=== PATIENT | female | born 1950 | race Caucasian/White ===

== ENCOUNTER 2018-12-20 07:08 | Emergency (ER) | payer MEDICARE ==
[~2018-12-20] VITALS: Ht 160 cm; Wt 127.0 kg
[~2018-12-20 07:08] MED LIST: ACET325 PO; CENTRUM SILVER1 EAC2 PO; CEPH500 PO; CHOL10002 PO; GUAPHELA PO; LISI20 PO; LOSA50 PO; OCUVITE EYE +1 EACH PO; OMEPRAZOLE MAGN20 MG PO; XARELTO15 MG PO; XARELTO20 MG PO
== END 2018-12-20 08:20 | disposition home or self-care (01) ==
LOC: ER 07:08
DX: M17.12 Unilateral primary osteoarthritis, left knee (principal); I10 Essential (primary) hypertension; K21.9 Gastro-esophageal reflux disease without esophagitis; Z88.0 Allergy status to penicillin; Z88.2 Allergy status to sulfonamides; Z79.01 Long term (current) use of anticoagulants; Z79.899 Other long term (current) drug therapy
CPT/HCPCS: 72100; 99283-25

== ENCOUNTER 2019-08-28 07:21 | Day surgery (SDC) | payer MEDICARE ==
[~2019-08-28 07:21] MED LIST changes: +OCCUVITE PO; +OMEP20ER PO; +VITAMIN D3 PO
== END 2019-08-28 22:46 | disposition home or self-care (01) ==
LOC: MOI MAM 07:21
DX: C50.912 Malignant neoplasm of unspecified site of left female breast (principal)
CPT/HCPCS: 19281

== ENCOUNTER 2019-09-13 05:45 | Day surgery (SDC) | payer MEDICARE ==
[~2019-09-13] VITALS: Ht 157.5 cm; Wt 130.1 kg
--- NOTE | 2019-09-13 06:32 | NUR ---
History, Chart, Medications and Allergies reviewed before start of procedure. Lungs clear T/O to Auscultation. Patient confirms NPO status and agrees with scheduled surgery. Pre-Op teaching done. Pt verbalizes understanding. Patient States Post-Procedure ride home has been arranged. Patient reports completing Chlorhexadine shower X2 prior to admission to hospital.
--- NOTE | 2019-09-13 10:15 | NUR ---
PT HAS HAD APPLESAUCE AND DRANK SOME WATER BUT NOW C/O NAUSEA. PT GIVEN ZOFRAN 4MG IV.
--- NOTE | 2019-09-13 10:47 | NUR ---
Discharge instructions reviewed with patient. Patient verbalizes understanding. Copy given to patient to take home. Patient States Post-Procedure ride home has been arranged. Discharged via wheelchair to private car for ride home.
== END 2019-09-13 10:40 | disposition home or self-care (01) ==
LOC: ORSCMMR 05:45 → ORD 07:30 → ORSCMMR 10:40
PROVIDERS: Surgery
PROC: 0HBU0ZX Excision of Left Breast, Open Approach, Diagnostic (ICD-10-PCS; principal; 2019-09-13 07:30)
DX: D05.12 Intraductal carcinoma in situ of left breast (principal); I10 Essential (primary) hypertension; K21.9 Gastro-esophageal reflux disease without esophagitis; E66.01 Morbid (severe) obesity due to excess calories; Z68.43 Body mass index [BMI] 50.0-59.9, adult; Z79.01 Long term (current) use of anticoagulants; Z79.899 Other long term (current) drug therapy
CPT/HCPCS: J0690; J1100; J1885; J2250; J2405; J2704; J3010; J7120

== ENCOUNTER 2020-07-22 05:47 | Inpatient (IN) | payer MEDICARE ==
[~2020-07-22] VITALS: Ht 160 cm; Wt 123.5 kg
[2020-07-22 06:56] LABS: BASOPHILS ABSOLUTE AUTO 0.05 K/mm3 (0.00-0.23); BASOPHILS PERCENT AUTO 0 % (0-2); EOSINOPHILS ABSOLUTE AUTO 0.35 K/mm3 (0.00-0.68); EOSINOPHILS PERCENT AUTO 3 % (0-6); Hematocrit 41.4 % (33.0-51.0); Hemoglobin 13.2 g/dL (11.5-16.0); IMMATURE GRAN ABSOLUTE AUTO 0.07 K/mm3 (0.00-0.10); IMMATURE GRAN PERCENT AUTO 1 % (0-1); LYMPHOCYTES ABSOLUTE AUTO 1.19 K/mm3 (0.84-5.20); LYMPHOCYTES PERCENT AUTO 11 % (21-46); MONOCYTES ABSOLUTE AUTO 0.96 K/mm3 (0.16-1.47); MONOCYTES PERCENT AUTO 9 % (4-13); Mean Corpuscular HGB 28.9 pg (26.0-34.0); Mean Corpuscular HGB Conc 31.9 g/dL (31.5-36.5); Mean Corpuscular Volume 91 fL (80-100); Mean Platelet Volume 11.5 fL (9.1-12.4); NEUTROPHILS ABSOLUTE AUTO 8.52 K/mm3 (1.96-9.15); NEUTROPHILS PERCENT AUTO 77 % (41-73); Platelet Count 201 K/mm3 (150-400); RDW Coefficient Variation 13.5 % (11.7-14.2); RDW Standard Deviation 45.5 fL (35.1-46.3); Red Blood Cell Count 4.56 M/mm3 (3.80-5.20); White Blood Cell Count 11.14 K/mm3 (4.00-11.30)
[2020-07-22 07:15] LABS: Alanine Aminotransfer (ALT/SGP 19 U/L (12-78); Albumin, Blood 2.6 g/dL (3.4-5.0); Albumin/Globulin Ratio 0.6 (0.8-1.8); Alk Phos 86 U/L (50-136); Anion Gap 5 mmol/L (6-16); Aspartate Aminotrans (AST/SGOT 59 U/L (12-37); Bilirubin, Total 1.2 mg/dL (0.1-1.0); Blood Urea Nitrogen 30 mg/dL (8-24); CO2, Blood 29 mmol/L (21-32); Calcium, Blood 8.6 mg/dL (8.5-10.1); Chloride, Blood 102 mmol/L (98-108); Creatinine, Blood 0.91 mg/dL (0.40-1.00); Globulin, Blood 4.2 g/dL (2.2-4.0); Glomerular Filtration Rate >60 (60-); Glucose, Blood 122 mg/dL (70-99); Potassium, Blood 5.3 mmol/L (3.5-5.5); Sodium, Blood 136 mmol/L (136-145); Total Protein, Blood 6.8 g/dL (6.4-8.2); Troponin I 0.071 ng/mL (0.000-0.040)
[2020-07-22 08:55] LABS: Source, Urine Clean Catch
[2020-07-22 08:57] LABS: Bilirubin, Urine Neg (Neg); Blood, Urine 1+ (Neg); Glucose Qualitative, Urine Neg (Neg); Ketones, Urine Neg (Neg); Leukocyte Esterase, Urine 1+ (Neg); Nitrite, Urine Pos (Neg); Protein, Urine Neg (Neg); Urobilinogen, Urine NORM (Normal)
[2020-07-22 09:12] LABS: Appearance, Urine Clear (Clear); Color, Urine Yellow (P-Yellow)
[2020-07-22 09:16] LABS: Bacteria Mod /hpf; Red Blood Cells, Urine 0-2 /hpf (0-2); Squamous Epithelial Cells Few /hpf (Few)
--- NOTE | 2020-07-22 11:07 | NUR ---
RECIEVED REPORT FROM CATARINO WILLSON RN @ [id number]. PATIENT ARRIVED TO ROOM 224 @ 1034 BY WHEEL CHAIR AND TRANSFERED SELF TO BATHROOM THEN HOSPITAL BED USING FWW; STEADY GAIT NOTED. ALERT AND ORIENTED. ABLE TO PROVIDE MEDICAL HISTORY; MED REC COMPLETED. PATIENT IN ROOM AT THIS TIME WITH [employer]. CALL LIGHT IN REACH.
[2020-07-22 12:16] LABS: International Normalized Ratio 1.09; Prothrombin Time Results 11.6 Sec (9.7-11.5)
--- NOTE | 2020-07-22 12:47 | NUR ---
Echocardiogram completed.
[2020-07-22 15:40] LABS: Troponin I 0.088 ng/mL (0.000-0.040)
--- NOTE | 2020-07-22 18:08 | NUR ---
PATIENT HAS BEEN PLEASANT AND COOPERATIVE WITH STAFF. VITALS HAVE BEEN STABLE. PATIENT HAS BEEN SLEEPING ON AND OFF T/O THE DAY WITH SOME DISCOMFORT BUT NOT REQUIRED ANY PAIN MEDICATION. PATIENT HAS BEEN STARTED ON IV HEPARIN DRIP AND IT CONTINUES PENDING THERAPEUTIC LEVELS. IV FLAGYL DUE AT 1600 HOWEVER AWAITING SECOND IV SITE TO ADMINISTER; PATIENT IS VERY DIFFICULT IV STICK. CHIP DRIER HUGO NOTIFIED AND TO PLACE IV OR FIND ARRANGEMENTS TO PLACE IV. PATIENT EATING CLEAR LIQUIDS IN ROOM AT THIS TIME AND TOLERATING WELL. CALL LIGHT IN REACH.
[2020-07-22 21:16] LABS: Influenza A, PCR NEGATIVE (NEGATIVE); Influenza B, PCR NEGATIVE (NEGATIVE); Resp Syncytial Virus, PCR NEGATIVE (NEGATIVE); SARS-Cov-2 (COVID-19) PCR, MMC NEGATIVE (NEGATIVE)
[2020-07-22 23:21] LABS: Troponin I 0.076 ng/mL (0.000-0.040)
--- NOTE | 2020-07-23 02:58 | NUR ---
SHIFT SUMMARY: ACUTE CHOLECYSTITIS PATIENT IS ALERT AND ORIENTED X4 WHILE AWAKE. SHE HAS BEEN ASLEEP MAJORITY OF THE SHIFT BUT IS EASILY AROUSABLE. VS ARE WNL AND IS ON RA. PAIN IS CONTROLLED WITH PO TYLENOL. SHE REPORTS SHE HAS PAIN AROUND HER STOMACH "ALL THE TIME AND IS CONSTANTLY THERE". SHE IS STILL ON AN IV HEPARIN DRIP AND IS BEING TITRATED PER PHARMACY. SHE HAS TWO IV'S IN HER RIGHT ARM. ONE OF THEM HAS ONLY THE HEPARIN WHILE THE OTHER ONE HAS ABX AND FLUIDS. SHE HAS BEEN NPO SINCE MIDNIGHT. SHE IS A 1 PERSON SBA TO BEDSIDE COMMODE. CALLS APPROPRIATELY. CALL LIGHT IS WITHIN REACH. SHE IS CURRENTLY LAYING IN BED. THE PLAN IS TO POSSIBLY HAVE SURGERY LATER TODAY.
[2020-07-23 03:12] LABS: BASOPHILS ABSOLUTE AUTO 0.04 K/mm3 (0.00-0.23); BASOPHILS PERCENT AUTO 1 % (0-2); EOSINOPHILS ABSOLUTE AUTO 0.34 K/mm3 (0.00-0.68); EOSINOPHILS PERCENT AUTO 5 % (0-6); Hematocrit 35.2 % (33.0-51.0); IMMATURE GRAN ABSOLUTE AUTO 0.02 K/mm3 (0.00-0.10); IMMATURE GRAN PERCENT AUTO 0 % (0-1); LYMPHOCYTES ABSOLUTE AUTO 1.58 K/mm3 (0.84-5.20); LYMPHOCYTES PERCENT AUTO 23 % (21-46); MONOCYTES ABSOLUTE AUTO 0.61 K/mm3 (0.16-1.47); MONOCYTES PERCENT AUTO 9 % (4-13); Mean Corpuscular HGB 28.7 pg (26.0-34.0); Mean Corpuscular HGB Conc 31.3 g/dL (31.5-36.5); Mean Corpuscular Volume 92 fL (80-100); Mean Platelet Volume 10.3 fL (9.1-12.4); NEUTROPHILS ABSOLUTE AUTO 4.28 K/mm3 (1.96-9.15); NEUTROPHILS PERCENT AUTO 62 % (41-73); Platelet Count 165 K/mm3 (150-400); RDW Coefficient Variation 13.3 % (11.7-14.2); RDW Standard Deviation 45.1 fL (35.1-46.3); Red Blood Cell Count 3.83 M/mm3 (3.80-5.20); White Blood Cell Count 6.87 K/mm3 (4.00-11.30)
[2020-07-23 03:35] LABS: Alanine Aminotransfer (ALT/SGP 13 U/L (12-78); Albumin, Blood 2.2 g/dL (3.4-5.0); Albumin/Globulin Ratio 0.8 (0.8-1.8); Alk Phos 67 U/L (50-136); Anion Gap 5 mmol/L (6-16); Aspartate Aminotrans (AST/SGOT 10 U/L (12-37); Bilirubin, Total 0.6 mg/dL (0.1-1.0); Blood Urea Nitrogen 15 mg/dL (8-24); Bun/Creatinine Ratio 20.8 (12.0-20.0); CO2, Blood 29 mmol/L (21-32); Calcium, Blood 7.7 mg/dL (8.5-10.1); Chloride, Blood 109 mmol/L (98-108); Creatinine, Blood 0.72 mg/dL (0.40-1.00); Globulin, Blood 2.9 g/dL (2.2-4.0); Glomerular Filtration Rate >60 (60-); Glucose, Blood 100 mg/dL (70-99); Sodium, Blood 143 mmol/L (136-145); Total Protein, Blood 5.1 g/dL (6.4-8.2)
[2020-07-23 03:36] LABS: Potassium, Blood 3.2 mmol/L (3.5-5.5)
--- NOTE | 2020-07-23 13:17 | NUR ---
Patient is lying in bed and alert. Patient immeditaely tells me about her up coming gallbladder surgery and her hopes to get it over with soon. She also talks about her waiting for surgery in July, the strength of her family unit and the deep [place] karina that they all share. She shares about the of her mother less than a year ago and the whole that she has left in all their hearts. I normalize patient's experience, and provide pastoral child welfare counselor, greif support and pre-surgical prayer. Patient responds well and shows signs of reduced stress. I will continue to remain available to patient and family.
--- NOTE | 2020-07-23 17:14 | NUR ---
SUMMARY NO ACUTE CHANGES T/O SHIFT. PT MEDICATED PER ORDERS FOR PAIN W/TYLENOL. DECLINED NARCOTICS. HEPARIN INFUSING PER ORDERS. PT GETS UP W/MINIMAL ASSIST TO BSC. VOIDING LIGHT YELLOW URINE. PLAN FOR SURGERY TOMORROW. CALL LIGHT IN REACH.
[2020-07-24 02:02] LABS: BASOPHILS ABSOLUTE AUTO 0.03 K/mm3 (0.00-0.23); BASOPHILS PERCENT AUTO 1 % (0-2); EOSINOPHILS ABSOLUTE AUTO 0.41 K/mm3 (0.00-0.68); EOSINOPHILS PERCENT AUTO 7 % (0-6); Hematocrit 35.2 % (33.0-51.0); Hemoglobin 11.1 g/dL (11.5-16.0); IMMATURE GRAN ABSOLUTE AUTO 0.02 K/mm3 (0.00-0.10); IMMATURE GRAN PERCENT AUTO 0 % (0-1); LYMPHOCYTES ABSOLUTE AUTO 1.52 K/mm3 (0.84-5.20); LYMPHOCYTES PERCENT AUTO 26 % (21-46); MONOCYTES ABSOLUTE AUTO 0.46 K/mm3 (0.16-1.47); MONOCYTES PERCENT AUTO 8 % (4-13); Mean Corpuscular HGB 28.9 pg (26.0-34.0); Mean Corpuscular HGB Conc 31.5 g/dL (31.5-36.5); Mean Corpuscular Volume 92 fL (80-100); NEUTROPHILS ABSOLUTE AUTO 3.44 K/mm3 (1.96-9.15); NEUTROPHILS PERCENT AUTO 59 % (41-73); Platelet Count 166 K/mm3 (150-400); RDW Coefficient Variation 13.2 % (11.7-14.2); RDW Standard Deviation 43.8 fL (35.1-46.3); Red Blood Cell Count 3.84 M/mm3 (3.80-5.20); White Blood Cell Count 5.88 K/mm3 (4.00-11.30)
[2020-07-24 02:26] LABS: Alanine Aminotransfer (ALT/SGP 11 U/L (12-78); Albumin, Blood 2.4 g/dL (3.4-5.0); Albumin/Globulin Ratio 0.9 (0.8-1.8); Alk Phos 64 U/L (50-136); Anion Gap 5 mmol/L (6-16); Aspartate Aminotrans (AST/SGOT 8 U/L (12-37); Bilirubin, Total 0.4 mg/dL (0.1-1.0); Blood Urea Nitrogen 8 mg/dL (8-24); Bun/Creatinine Ratio 11.3 (12.0-20.0); CO2, Blood 31 mmol/L (21-32); Chloride, Blood 109 mmol/L (98-108); Creatinine, Blood 0.71 mg/dL (0.40-1.00); Globulin, Blood 2.8 g/dL (2.2-4.0); Glomerular Filtration Rate >60 (60-); Glucose, Blood 103 mg/dL (70-99); Magnesium, Blood 1.8 mg/dL (1.6-2.4); Phosphorus, Blood 3.3 mg/dL (2.5-4.9); Potassium, Blood 3.1 mmol/L (3.5-5.5); Sodium, Blood 145 mmol/L (136-145); Total Protein, Blood 5.2 g/dL (6.4-8.2); Troponin I 0.066 ng/mL (0.000-0.040)
--- NOTE | 2020-07-24 04:18 | NUR ---
SHIFT SUMMARY: PT A&O X4. VS WNL. PT HAS BEEN NPO SINCE MIDNIGHT FOR PLANNED SURGERY TODAY. MEDICATED WITH TYLENOL PRIOR TO BED AND PT APPEARS TO BE RESTING COMFORTABLY SINCE. TRANSFERING TO BS WITH ONE SBA. VOIDING WELL. DENIES N/V T/O SHIFT. HEPARIN GTT INFUSING PER EMAR W/O NEED FOR ADJUSTMENT PER PHARMACY. IVF AND ABX INFUSING PER EMAR.
--- NOTE | 2020-07-24 07:33 | NUR ---
ASSUMED CARE: PT RESTING QUIETLY IN BED AT THIS TIME. HEPARIN GTT RUNNING, VERIFIED DOSE WITH NIGHT RN. SINUS ISA AT 58 ON TELE AT THIS TIME. NO ACUTE NEEDS OR CONCERNS
--- NOTE | 2020-07-24 14:24 | NUR ---
PT TAKEN TO DAY SURGERY AT THIS TIME.
--- NOTE | 2020-07-24 14:33 | NUR ---
Patient up to Ambulate independently. Gait steady. Surgical site prepped with 2% Chlorhexidine cloth wipe. History, Chart, Medications and Allergies reviewed before start of procedure.Lungs clear T/O to Auscultation. Patient confirms NPO status and agrees with scheduled surgery. ALL BELONINGS WEXCEPT GLASSES PLACED IN PACU.
--- NOTE | 2020-07-24 15:02 | NUR ---
PATIENT WAS BROUGHT TO DAY SURGERY FOR HER PROCEDURE. Ambulatory in Day Surgery Surgical site prepped with 2% Chlorhexidine cloth wipe. History, Chart, Medications and Allergies reviewed before start of procedure.Lungs clear T/O to Auscultation. Pre-Op teaching done. Pt verbalizes understanding.
--- NOTE | 2020-07-24 17:00 | NUR ---
PT RETURNED FROM DAY SURGERY TO ROOM 224. SHE HAS STERI STRIPS TO ABDOMEN WITH MINIMAL DRAINAGE AND EUSEBIO DRAIN PUTTING OUT SMALL AMOUNT OF BLOODY, SEROSAINGUINOUS DRAINAGE. DENIES NEEDS OR CONCERNS AT THIS TIME.
--- NOTE | 2020-07-24 18:24 | NUR ---
SHIFT SUMMARY: PT RETURNED FROM SURGERY. NO ACUTE NEEDS OR CONCERNS AT THIS TIME. POTASSIUM BEING REPLETED. EUSEBIO DRAIN WITH MINIMAL DRAINAGE.
--- NOTE | 2020-07-25 03:49 | NUR ---
SHIFT SUMMARY: PT POD#1 FOR LAP RICHIE. LAP SITES C/D/I. EUSEBIO DRAINING A MODERATE AMOUNT OF SANGUINOUS DRG. PAIN BEING MANAGED WITH TYLENOL AND 25-50MCG OF FENTANYL PER EMAR. HEP GTT INFUSING PER ORDERS. PT ELLEN CLEAR LIQ DIET. DENIES N/V. PT OUT OF BED TO BSC SEVERAL TIMES. VOIDING WELL. NO CONCERNS AT THIS TIME. PT APPEARS TO BE RESTING MOST OF SHIFT.
[2020-07-25 05:47] LABS: BASOPHILS ABSOLUTE AUTO 0.01 K/mm3 (0.00-0.23); BASOPHILS PERCENT AUTO 0 % (0-2); EOSINOPHILS PERCENT AUTO 0 % (0-6); Hematocrit 37.3 % (33.0-51.0); Hemoglobin 11.8 g/dL (11.5-16.0); IMMATURE GRAN ABSOLUTE AUTO 0.05 K/mm3 (0.00-0.10); IMMATURE GRAN PERCENT AUTO 1 % (0-1); LYMPHOCYTES ABSOLUTE AUTO 0.48 K/mm3 (0.84-5.20); LYMPHOCYTES PERCENT AUTO 6 % (21-46); MONOCYTES ABSOLUTE AUTO 0.22 K/mm3 (0.16-1.47); MONOCYTES PERCENT AUTO 3 % (4-13); Mean Corpuscular HGB 28.8 pg (26.0-34.0); Mean Corpuscular HGB Conc 31.6 g/dL (31.5-36.5); Mean Corpuscular Volume 91 fL (80-100); Mean Platelet Volume 10.4 fL (9.1-12.4); NEUTROPHILS ABSOLUTE AUTO 7.88 K/mm3 (1.96-9.15); NEUTROPHILS PERCENT AUTO 91 % (41-73); Platelet Count 210 K/mm3 (150-400); RDW Coefficient Variation 12.9 % (11.7-14.2); RDW Standard Deviation 42.7 fL (35.1-46.3); White Blood Cell Count 8.64 K/mm3 (4.00-11.30)
[2020-07-25 06:07] LABS: Alanine Aminotransfer (ALT/SGP 19 U/L (12-78); Albumin, Blood 2.3 g/dL (3.4-5.0); Albumin/Globulin Ratio 0.8 (0.8-1.8); Alk Phos 69 U/L (50-136); Anion Gap 5 mmol/L (6-16); Aspartate Aminotrans (AST/SGOT 16 U/L (12-37); Bilirubin, Total 0.5 mg/dL (0.1-1.0); Blood Urea Nitrogen 5 mg/dL (8-24); Bun/Creatinine Ratio 7.9 (12.0-20.0); CO2, Blood 29 mmol/L (21-32); Calcium, Blood 8.2 mg/dL (8.5-10.1); Chloride, Blood 108 mmol/L (98-108); Creatinine, Blood 0.63 mg/dL (0.40-1.00); Glomerular Filtration Rate >60 (60-); Glucose, Blood 154 mg/dL (70-99); Magnesium, Blood 1.8 mg/dL (1.6-2.4); Phosphorus, Blood 2.7 mg/dL (2.5-4.9); Potassium, Blood 3.9 mmol/L (3.5-5.5); Sodium, Blood 142 mmol/L (136-145); Total Protein, Blood 5.3 g/dL (6.4-8.2)
--- NOTE | 2020-07-25 06:25 | NUR ---
HEPARIN RATE INCREASED AT THIS TIME PER PHARMACY RECOMMENDATION
--- NOTE | 2020-07-25 19:10 | NUR ---
SHIFT SUMMARY PT POD #1 FOR A LAP RICHIE. NO ACUTE CHANGES THIS SHIFT. STERI STRIPS C/D/I AND EUSEBIO DRAIN DRAINING RED/SEROUS FLUID. PT TO DISCHARGE HOME WITH THE DRAIN IN PLACE. WILL REMOVE THE DRAIN AT FOLLOW UP APPOINTMENT. HEPARIN DRIP DC'D AND XARELTO STARTED. VSS; WILL DC HOME TOMORROW.
--- NOTE | 2020-07-26 04:41 | NUR ---
SHIFT SUMMARY POD2 LAP RICHIE WITH EUSEBIO DRAIN. NO ACUTE CHANGES OVERNIGHT. PT AOX4. AMBULATING W/ 1 MIN ASSIST. TOLERATING WALKING IN THE BATHROOM WELL. PT REPORTS MINIMAL PAIN. PAIN MANAGED WITH TYLENOL. ABX INFUSING IN HER L UPPER ARM/POWERGLIDE. VSS. EUSEBIO DRAINING W/ SEROUS FLUID. PT SLEPT GOOD T/O SHIFT. VOIDING ADEQUATELY WITH NO DIFFICULTY/ISSUES. PASSING FLATUS. ANTICIPATE TO GO HOME TODAY. CALL LIGHT WITHIN REACH.
--- NOTE | 2020-07-26 12:06 | NUR ---
Patient tells me that she is feeling stronger and is ready to DC to home. Patient expresses her continued concerns for her and son. I provide therapeutic listening, a blessing and a prayer. Patient responds well and voices appreciation for the spiritual care visits.
--- NOTE | 2020-07-26 15:43 | NUR ---
SHIFT SUMMARY PT A/O X4; PLEASANT AND COOPERATIVE WITH CARE. POD #2 FOR A LAP RICHIE. STERI STRIPS C/D/I. EUSEBIO DRAIN REMOVED BY SURGEON; STERI STRIPS IN PLACE. COVERED NEW STERI STRIPS WITH A BANDAID BECAUSE SCANT DRAINAGE PRESENT. IV AND POWERGLIDE DC'D WNL. EDUCATION PROVIDED TO PATIENT AND PATIENT'S SON. DC'D HOME WITH SON.
== END 2020-07-26 15:15 | disposition home or self-care (01) | DRG 418 ==
LOC: ER 05:47 → SURS 05:48
PROVIDERS: Emergency Medicine; Family Medicine; Surgery; ADMIT Internal Medicine
PROC: 0FT44ZZ Resection of Gallbladder, Percutaneous Endoscopic Approach (ICD-10-PCS; principal; 2020-07-24 14:30)
DX: K80.01 Calculus of gallbladder with acute cholecystitis with obstruction (principal); Z68.42 Body mass index [BMI] 45.0-49.9, adult; N39.0 Urinary tract infection, site not specified; I10 Essential (primary) hypertension; Z20.822 Contact with and (suspected) exposure to COVID-19; I25.10 Atherosclerotic heart disease of native coronary artery without angina pectoris; E66.01 Morbid (severe) obesity due to excess calories; Z90.12 Acquired absence of left breast and nipple; Z86.711 Personal history of pulmonary embolism; Z79.01 Long term (current) use of anticoagulants; K21.9 Gastro-esophageal reflux disease without esophagitis
CPT/HCPCS: 0241U; 36415; 76705; 80053; 81001; 82550; 83690; 83735; 84100; 84484; 85025; 85610; 85730; 87086; 88304; 93005; 93010; 93306; 96361; 96365; 96366; 96367; 96375; 96376; 99285-25; A9270; G0378; J0696; J1100; J1644; J2250; J2270; J2405; J2704; J2765; J3010; J3480; J7030; J7040; J7060; J7120

== ENCOUNTER → 2020-09-04 | Outpatient (CLI) | payer MEDICARE ==
[2020-09-04 09:29] LABS: Source, Urine Clean Catch
[2020-09-04 10:36] LABS: Appearance, Urine Hazy (Clear); Bilirubin, Urine Neg (Neg); Blood, Urine 1+ (Neg); Color, Urine Yellow (P-Yellow); Glucose Qualitative, Urine Neg (Neg); Ketones, Urine Neg (Neg); Leukocyte Esterase, Urine Neg (Neg); Nitrite, Urine Neg (Neg); Protein, Urine Neg (Neg); Specific Gravity, Urine 1.015 (1.003-1.022); Urobilinogen, Urine NORM (Normal)
[2020-09-04 11:28] LABS: White Blood Cells, Urine Rare /hpf (0-5)
[2020-09-04 11:29] LABS: Bacteria Few /hpf; Red Blood Cells, Urine 0-2 /hpf (0-2); Squamous Epithelial Cells Mod /hpf (Few)
== END | disposition home or self-care (01) ==
LOC: LAB 09:27 → LAB SHORT 09:27
PROVIDERS: Family Medicine
DX: R79.9 Abnormal finding of blood chemistry, unspecified (principal)
CPT/HCPCS: 81001

== ENCOUNTER 2021-03-19 08:17 | Day surgery (SDC) | payer MEDICARE ==
[~2021-03-19] VITALS: Ht 160 cm; Wt 124.1 kg
[~2021-03-19 08:17] MED LIST changes: +FURO40 PO; +PEPCID40 MG PO
--- NOTE | 2021-03-19 08:56 | NUR ---
Patient states colon prep results clear. History, Chart, Medications and Allergies reviewed before start of procedure. Lungs clear T/O to Auscultation. Patient confirms NPO status and agrees with scheduled surgery. Pre-Op teaching done. Pt verbalizes understanding. Patient States Post-Procedure ride home has been arranged.
--- NOTE | 2021-03-19 09:16 | NUR ---
03/19/21 0916 Kenny Turcios History, Chart, Medications and Allergies reviewed before start of procedure.MONITOR INTACT WITH CONTINUOUS PULSE OXIMETRY AND INTERMITTENT BP.3-LEAD EKG REVIEWED WITH PHYSICIAN PRIOR TO START OF PROCEDURE.O2 VIA POM INTACT THROUGHOUT SEDATION/PROCEDURE. See Anesthesia record.
--- NOTE | 2021-03-19 10:29 | NUR ---
Patient up to Ambulate 1 PERSON STAND BY. Gait steady. Discharge instructions reviewed with patient. Patient verbalizes understanding. Copy given to patient to take home. Discharged via wheelchair to private car for ride home WITH SON. PERSONAL GLASSES WITH PT.
== END 2021-03-19 10:22 | disposition home or self-care (01) ==
LOC: ORSCMMR 08:17 → ORD 09:30 → ORSCMMR 10:22
PROVIDERS: Internal Medicine Gastroenterology
PROC: 0DBM8ZX Excision of Descending Colon, Via Natural or Artificial Opening Endoscopic, Diagnostic (ICD-10-PCS; principal; 2021-03-19 09:30)
PROC: 0DB48ZX Excision of Esophagogastric Junction, Via Natural or Artificial Opening Endoscopic, Diagnostic (ICD-10-PCS; principal; 2021-03-19 09:30)
PROC: 0DB58ZX Excision of Esophagus, Via Natural or Artificial Opening Endoscopic, Diagnostic (ICD-10-PCS; principal; 2021-03-19 09:30)
PROC: 0DB98ZX Excision of Duodenum, Via Natural or Artificial Opening Endoscopic, Diagnostic (ICD-10-PCS; principal; 2021-03-19 09:30)
DX: Z12.11 Encounter for screening for malignant neoplasm of colon (principal); Z86.010 Personal history of colon polyps; K21.9 Gastro-esophageal reflux disease without esophagitis; D12.4 Benign neoplasm of descending colon; K44.9 Diaphragmatic hernia without obstruction or gangrene; E66.01 Morbid (severe) obesity due to excess calories; Z68.43 Body mass index [BMI] 50.0-59.9, adult; I10 Essential (primary) hypertension; Z85.3 Personal history of malignant neoplasm of breast; G47.33 Obstructive sleep apnea (adult) (pediatric); Z86.711 Personal history of pulmonary embolism; Z79.01 Long term (current) use of anticoagulants; Z79.899 Other long term (current) drug therapy; Z87.891 Personal history of nicotine dependence
CPT/HCPCS: 88305; 88342; J2704; J7120

== ENCOUNTER 2022-09-08 06:30 | Day surgery (SDC) | payer MEDICARE ==
[~2022-09-08] VITALS: Ht 160 cm; Wt 122.7 kg
--- NOTE | 2022-09-08 07:23 | NUR ---
09/08/22 0723 Karin Baca 0706, VAL 0771
[2022-09-08 08:49] VITALS: BP 153/70
--- NOTE | 2022-09-08 10:25 | NUR ---
09/08/22 1025 Isrrael Shell IV REMOVED [id number], CANULA INTACT. SITE WNL. PT TOLERATED PROCEDURE WELL.
== END 2022-09-08 08:50 | disposition home or self-care (01) ==
LOC: ORSCSDS 06:30
PROVIDERS: Student in an Organized Health Care Education/Training Program
PROC: 08DJ3ZZ Extraction of Right Lens, Percutaneous Approach (ICD-10-PCS; principal; 2022-09-08 08:00)
DX: H25.11 Age-related nuclear cataract, right eye (principal); I10 Essential (primary) hypertension; G47.33 Obstructive sleep apnea (adult) (pediatric); E66.9 Obesity, unspecified; K21.9 Gastro-esophageal reflux disease without esophagitis; Z68.42 Body mass index [BMI] 45.0-49.9, adult; Z79.899 Other long term (current) drug therapy
CPT/HCPCS: J2001; J2250; J3010; J7040; V2632

== ENCOUNTER 2022-09-22 06:36 | Day surgery (SDC) | payer MEDICARE ==
[~2022-09-22] VITALS: Ht 160 cm; Wt 123.4 kg
--- NOTE | 2022-09-22 07:08 | NUR ---
09/22/22 0708 Rosendo Sharp CALL LIGHT WITHIN REACH. TETRACAINE IN [place] 0708N IN THE LEFT EYE.
[2022-09-22 09:04] VITALS: BP 169/93
--- NOTE | 2022-09-22 09:04 | NUR ---
09/22/22 0904 FABIAN GROVE IV REMOVED AT 0850, CANULA INTACT, PT TOLERATED PROCEDURE WELL, SITE WNL.
== END 2022-09-22 09:03 | disposition home or self-care (01) ==
LOC: ORSCSDS 06:36
PROVIDERS: Student in an Organized Health Care Education/Training Program
PROC: 08DK3ZZ Extraction of Left Lens, Percutaneous Approach (ICD-10-PCS; principal; 2022-09-22 08:00)
DX: H25.12 Age-related nuclear cataract, left eye (principal); Z96.1 Presence of intraocular lens; G47.33 Obstructive sleep apnea (adult) (pediatric); I10 Essential (primary) hypertension; Z79.01 Long term (current) use of anticoagulants; Z79.899 Other long term (current) drug therapy
CPT/HCPCS: J2001; J2250; J3010; J7040; V2632